=== PATIENT | male | born 1985 | race Caucasian/White ===

== ENCOUNTER 2017-08-19 17:10 | Emergency (ER) | payer MEDICAID ==
[~2017-08-19] VITALS: Ht 172.7 cm; Wt 93.9 kg
[2017-08-19 17:10] VITALS: BP_SYST 122
[2017-08-19] MEDS ORDERED: NACL 0.9% 1,000 ML IV ONE (19:30)
[2017-08-19] MEDS ORDERED: ONDANSETRON HCL 4 MG/2 ML VIAL IVP ONE (19:30)
[2017-08-19 20:29] LABS: BASOPHILS % (AUTO) 0.4 % (0.0-2.0); EOSINOPHILS # (AUTO) 0.1 K/uL (0.0-0.4); EOSINOPHILS % (AUTO) 0.7 % (0.0-4.0); HEMATOCRIT 39.8 % (36-54); HEMOGLOBIN 13.4 g/dL (14.0-18.0); LYMPHOCYTES # (AUTO) 1.7 K/uL (1.0-5.5); MEAN CORPUSCULAR HEMOGLOBIN 32 pg (27-31); MEAN CORPUSCULAR HGB CONC 34 % (32-36); MEAN CORPUSCULAR VOLUME 95 fL (79.0-98.0); MONOCYTES # (AUTO) 0.6 K/uL (0.0-1.0); MONOCYTES % (AUTO) 7.2 % (1.7-9.3); NEUTROPHILS # (AUTO) 6.4 K/uL (1.8-7.7); NEUTROPHILS % (AUTO) 72.7 % (40.0-70.0); PLATELET COUNT (AUTO) 123 K/uL (130-430); RED BLOOD CELL COUNT(AUTO) 4.18 MIL/uL (4.2-6.2); RED CELL DISTRIBUTION WIDTH 13.4 % (9.0-15.0); WHITE BLOOD COUNT (AUTO) 8.8 K/uL (4.8-10.8)
[2017-08-19 20:40] LABS: ANION GAP 11 (5-15); CALCIUM 7.9 mg/dL (8.4-11.0); CHLORIDE 100 mmol/L (98-107); CREATININE 0.61 mg/dL (0.55-1.30); GLUCOSE 96 mg/dL (70-99); SODIUM SERUM 138 mmol/L (136-145); UREA NITROGEN, BLOOD 5 mg/dL (8-21)
[2017-08-19 20:43] LABS: GFR AFRICAN AMERICAN 197 mL/min (>90)
[2017-08-19 20:44] LABS: POTASSIUM 2.9 mmol/L (3.5-5.1)
[2017-08-19 20:46] LABS: ACETAMINOPHEN < 1 ug/mL (1-30); ALANINE AMINOTRANSFERASE 130 U/L (12-78); ALBUMIN 3.2 g/dL (3.4-4.8); ASPARTATE AMINOTRANSFERASE 248 U/L (10-37); TOTAL BILIRUBIN 1.9 mg/dL (0.0-1.0)
[2017-08-19 20:47] LABS: ALCOHOL, BLOOD 232 mg/dL (<10)
[2017-08-19] MEDS ORDERED: POTASSIUM CHLORIDE 20 MEQ/PKT PACKET PO ONE (21:15)
[2017-08-19 21:16] VITALS: BP_SYST 132
== END 2017-08-19 21:16 | disposition home or self-care (01) ==
LOC: SED 17:10
DX: K52.9 Noninfective gastroenteritis and colitis, unspecified (principal); F10.129 Alcohol abuse with intoxication, unspecified; Z88.0 Allergy status to penicillin; Y90.8 Blood alcohol level of 240 mg/100 ml or more
CPT/HCPCS: 36415; 71045; 74021; 80053; 83690; 85025; 96361; 96374; 99285; G0480; G0481; G0482; J2405; J7030

== ENCOUNTER 2017-08-21 11:32 | Emergency (ER) | payer MEDICAID ==
[~2017-08-21] VITALS: Ht 172.7 cm; Wt 93.9 kg
[2017-08-21 11:39] VITALS: BP_SYST 133
[2017-08-21] MEDS ORDERED: NACL 0.9% 1,000 ML IV ONE (12:00)
[2017-08-21] MEDS ORDERED: FOLIC ACID 5 MG/ML VIAL IV ONE (12:00)
[2017-08-21] MEDS ORDERED: THIAMINE HCL 100 MG TABLET PO ONE (12:00)
[2017-08-21] MEDS ORDERED: ONDANSETRON HCL 4 MG/2 ML VIAL IVP ONE (12:00)
[2017-08-21] MEDS ORDERED: LORazepam 2 MG/ML VIAL (FOR ER USE) IVP ONE (12:00)
[2017-08-21 12:44] LABS: BASOPHILS # (AUTO) 0.1 K/uL (0.0-0.2); BASOPHILS % (AUTO) 0.7 % (0.0-2.0); EOSINOPHILS % (AUTO) 0.2 % (0.0-4.0); HEMATOCRIT 39.3 % (36-54); HEMOGLOBIN 13.1 g/dL (14.0-18.0); LYMPHOCYTES % (AUTO) 13.4 % (20.5-51.5); MEAN CORPUSCULAR HEMOGLOBIN 32 pg (27-31); MEAN CORPUSCULAR HGB CONC 34 % (32-36); MEAN CORPUSCULAR VOLUME 95 fL (79.0-98.0); MONOCYTES # (AUTO) 0.5 K/uL (0.0-1.0); MONOCYTES % (AUTO) 6.8 % (1.7-9.3); NEUTROPHILS % (AUTO) 78.9 % (40.0-70.0); PLATELET COUNT (AUTO) 110 K/uL (130-430); RED BLOOD CELL COUNT(AUTO) 4.11 MIL/uL (4.2-6.2); WHITE BLOOD COUNT (AUTO) 7.6 K/uL (4.8-10.8)
[2017-08-21 12:46] LABS: BILIRUBIN,URINE 2+ (NEGATIVE); BLOOD, URINE NEGATIVE (NEGATIVE); CLARITY/URINE CLEAR (CLEAR); COLOR,URINE YELLOW (YELLOW); GLUCOSE,URINE NEGATIVE (NEGATIVE); KETONES,URINE TRACE (NEGATIVE); LEUKOCYTE ESTERASE ,URINE NEGATIVE (NEGATIVE); NITRITE, URINE NEGATIVE (NEGATIVE); PH,URINE 6.5 (5.0-8.0); PROTEIN URINE 1+ (NEGATIVE)
[2017-08-21 12:49] LABS: CALCIUM 8.3 mg/dL (8.4-11.0); CREATININE 0.54 mg/dL (0.55-1.30); POTASSIUM 3.2 mmol/L (3.5-5.1)
[2017-08-21 12:53] LABS: ALBUMIN 3.3 g/dL (3.4-4.8); PHOSPHORUS 2.7 mg/dL (2.7-4.5)
[2017-08-21 13:02] LABS: BARBITURATE, URINE NEGATIVE (NEG <=200); BENZODIAZEPINE, URINE NEGATIVE (NEG <=150); CANNABINOID, URINE POSITIVE (NEG <=50); COCAINE, URINE NEGATIVE (NEG <=150); METHAMPHETAMINES SCREEN,URINE NEGATIVE (NEG <=500); OPIATE, URINE POSITIVE (NEG <=100); URINE AMPHETAMINE NEGATIVE (NEG <=500); URINE METHADONE NEGATIVE (NEG <=200)
[2017-08-21 13:03] LABS: PHENCYCLIDINE SCREEN,URINE NEGATIVE (NEG <=25); UR TRICYCLIC ANTIDEPRESSANTS NEGATIVE (NEG <=300); URINE OXYCODONE SCREEN NEGATIVE (NEG <=100); URINE PROPOXYPHENE SCREEN NEGATIVE (NEG <=300)
[2017-08-21 13:30] LABS: BACTERIA,URINE FEW /HPF (None Seen); MUCUS,URINE 2+ /LPF (None Seen); RBC,URINE 0-3 /HPF (0-3); WBC,URINE 0-3 /HPF (0-3)
[2017-08-21] MEDS ORDERED: MAGNESIUM SULFATE 1 GM in NS 100 ML IV ONE (13:30)
[2017-08-21] MEDS ORDERED: POTASSIUM CHLORIDE 10 MEQ TAB.PRT.SR PO ONE (13:30)
[2017-08-21] MEDS ORDERED: MAGNESIUM SULFATE 1 GM/2 ML VIAL ONE (13:31)
[2017-08-21 14:48] VITALS: BP_SYST 135
== END 2017-08-21 14:48 | disposition home or self-care (01) ==
LOC: SED 11:32
DX: K52.9 Noninfective gastroenteritis and colitis, unspecified (principal); F10.239 Alcohol dependence with withdrawal, unspecified; I10 Essential (primary) hypertension; Z88.0 Allergy status to penicillin; Y90.4 Blood alcohol level of 80-99 mg/100 ml
CPT/HCPCS: 36415; 80053; 80307; 81000; 83690; 83735; 84100; 85025; 96361; 96365; 96375; 99284; G0482; J2060; J2405; J3475; J3490

== ENCOUNTER 2017-09-04 19:49 | Emergency (ER) | payer MEDICAID ==
[~2017-09-04] VITALS: Ht 172.7 cm; Wt 93.9 kg
[2017-09-04 20:20] VITALS: BP_SYST 127
== END 2017-09-04 21:25 | disposition left against medical advice (07) ==
LOC: SED 19:49
DX: H92.09 Otalgia, unspecified ear (principal); Z53.21 Procedure and treatment not carried out due to patient leaving prior to being seen by health care provider

== ENCOUNTER 2017-09-05 08:30 | Inpatient (IN) | payer MEDICAID ==
[~2017-09-05] VITALS: Ht 170.2 cm; Wt 93.9 kg
[2017-09-05 08:30] VITALS: BP_SYST 139
[2017-09-05] MEDS ORDERED: FOLIC ACID 1 MG, THIAMINE HCL 100 MG, MAGNESIUM SULFATE 1 GM, MVI 10 ML in NACL 0.9% 1,... IV ONE (09:00)
[2017-09-05 09:29] LABS: BASOPHILS # (AUTO) 0.1 K/uL (0.0-0.2); BASOPHILS % (AUTO) 1.1 % (0.0-2.0); EOSINOPHILS # (AUTO) 0.1 K/uL (0.0-0.4); EOSINOPHILS % (AUTO) 1.6 % (0.0-4.0); HEMOGLOBIN 12.5 g/dL (14.0-18.0); LYMPHOCYTES # (AUTO) 1.2 K/uL (1.0-5.5); LYMPHOCYTES % (AUTO) 15.9 % (20.5-51.5); MEAN CORPUSCULAR HEMOGLOBIN 31 pg (27-31); MEAN CORPUSCULAR HGB CONC 33 % (32-36); MEAN CORPUSCULAR VOLUME 96 fL (79.0-98.0); MONOCYTES # (AUTO) 0.6 K/uL (0.0-1.0); MONOCYTES % (AUTO) 7.2 % (1.7-9.3); NEUTROPHILS # (AUTO) 5.8 K/uL (1.8-7.7); NEUTROPHILS % (AUTO) 74.2 % (40.0-70.0); PLATELET COUNT (AUTO) 164 K/uL (130-430); RED BLOOD CELL COUNT(AUTO) 3.98 MIL/uL (4.2-6.2); WHITE BLOOD COUNT (AUTO) 7.8 K/uL (4.8-10.8)
[2017-09-05 09:41] LABS: CREATININE 0.56 mg/dL (0.55-1.30); POTASSIUM 3.1 mmol/L (3.5-5.1)
[2017-09-05 09:45] LABS: INR 1.7 (0.80-1.20); PROTHROMBIN TIME 17.8 SECS (9.5-12.5)
[2017-09-05 09:46] LABS: ALBUMIN 3.1 g/dL (3.4-4.8); TOTAL BILIRUBIN 1.8 mg/dL (0.0-1.0)
[2017-09-05 10:00] LABS: BILIRUBIN,URINE NEGATIVE (NEGATIVE); BLOOD, URINE NEGATIVE (NEGATIVE); CLARITY/URINE CLEAR (CLEAR); COLOR,URINE YELLOW (YELLOW); GLUCOSE,URINE NEGATIVE (NEGATIVE); KETONES,URINE NEGATIVE (NEGATIVE); LEUKOCYTE ESTERASE ,URINE NEGATIVE (NEGATIVE); NITRITE, URINE NEGATIVE (NEGATIVE); PROTEIN URINE NEGATIVE (NEGATIVE); UROBILINOGEN,URINE 0.2 (0.2-1.0)
[2017-09-05] MEDS ORDERED: POTASSIUM CHLORIDE 20 MEQ TAB.PRT.SR PO ONE (10:15)
[2017-09-05 10:31] LABS: BARBITURATE, URINE NEGATIVE (NEG <=200); BENZODIAZEPINE, URINE POSITIVE (NEG <=150); CANNABINOID, URINE POSITIVE (NEG <=50); COCAINE, URINE NEGATIVE (NEG <=150); METHAMPHETAMINES SCREEN,URINE NEGATIVE (NEG <=500); OPIATE, URINE POSITIVE (NEG <=100); PHENCYCLIDINE SCREEN,URINE NEGATIVE (NEG <=25); UR TRICYCLIC ANTIDEPRESSANTS NEGATIVE (NEG <=300); URINE AMPHETAMINE NEGATIVE (NEG <=500); URINE METHADONE NEGATIVE (NEG <=200); URINE OXYCODONE SCREEN NEGATIVE (NEG <=100); URINE PROPOXYPHENE SCREEN NEGATIVE (NEG <=300)
[2017-09-05 10:45] VITALS: BP_SYST 120
[2017-09-05] MEDS ORDERED: POTASSIUM CHLORIDE 40 MEQ, LIDOCAINE JECT 2% PF 100 MG 50 MG in NS 250 ML IV ONE (11:30)
[2017-09-05 12:00] VITALS: BP_SYST 127
[2017-09-05 16:00] VITALS: BP_SYST 123
[2017-09-05] MEDS: FOLIC ACID 1 MG, THIAMINE HCL 100 MG, MAGNESIUM SULFATE 1 GM, MVI 10 ML in NACL 0.9% 1,... IV SCH (16:41)
[2017-09-05] MEDS ORDERED: INSULIN REGULAR, HUMAN 100 UNITS/ML, 10 ML VIAL (novoLIN R) SUBCUT PRN (18:30)
[2017-09-05] MEDS ORDERED: DEXTROSE 50% JECT 50 ML DISP.SYRIN IVP PRN (18:30)
[2017-09-05] MEDS ORDERED: PHYTONADIONE 5 MG TABLET PO ONE (18:30)
[2017-09-05] MEDS ORDERED: THIAMINE HCL 100 MG TABLET PO ONE (18:45)
[2017-09-05] MEDS ORDERED: FOLIC ACID 1 MG TABLET PO ONE (18:45)
[2017-09-05 20:00] VITALS: BP_SYST 126
[2017-09-05] MEDS ORDERED: AMOXICILLIN/CLAVULANATE POTASSIUM 875 MG TABLET PO SCH (21:00)
[2017-09-05] MEDS: POTASSIUM CHLORIDE 20 MEQ TAB.PRT.SR PO SCH (21:22)
[2017-09-05] MEDS: LORazepam 2 MG/ML VIAL IVP PRN (21:39)
[2017-09-06] VITALS: BP_SYST 124
[2017-09-06 07:25] VITALS: BP_SYST 124
[2017-09-06] MEDS: POTASSIUM CHLORIDE 20 MEQ TAB.PRT.SR PO SCH ×2 (08:35→20:24)
[2017-09-06] MEDS: FOLIC ACID 1 MG TABLET PO SCH (08:35)
[2017-09-06] MEDS: THIAMINE HCL 100 MG TABLET PO SCH (08:36)
[2017-09-06 08:56] LABS: BASOPHILS % (AUTO) 0.7 % (0.0-2.0); EOSINOPHILS # (AUTO) 0.1 K/uL (0.0-0.4); EOSINOPHILS % (AUTO) 0.8 % (0.0-4.0); HEMATOCRIT 38.4 % (36-54); HEMOGLOBIN 12.8 g/dL (14.0-18.0); LYMPHOCYTES % (AUTO) 14.6 % (20.5-51.5); MEAN CORPUSCULAR HEMOGLOBIN 32 pg (27-31); MEAN CORPUSCULAR HGB CONC 33 % (32-36); MEAN CORPUSCULAR VOLUME 96 fL (79.0-98.0); MONOCYTES # (AUTO) 0.5 K/uL (0.0-1.0); MONOCYTES % (AUTO) 6.7 % (1.7-9.3); NEUTROPHILS # (AUTO) 5.4 K/uL (1.8-7.7); NEUTROPHILS % (AUTO) 77.2 % (40.0-70.0); PLATELET COUNT (AUTO) 126 K/uL (130-430); RED BLOOD CELL COUNT(AUTO) 4.01 MIL/uL (4.2-6.2); RED CELL DISTRIBUTION WIDTH 13.7 % (9.0-15.0)
[2017-09-06 09:06] LABS: ALBUMIN 2.8 g/dL (3.4-4.8); CALCIUM 8.3 mg/dL (8.4-11.0); CREATININE 0.48 mg/dL (0.55-1.30); POTASSIUM 4.1 mmol/L (3.5-5.1); TOTAL BILIRUBIN 3.1 mg/dL (0.0-1.0)
[2017-09-06] MEDS: LORazepam 2 MG/ML VIAL IVP PRN ×2 (11:15→20:07)
[2017-09-06 16:15] VITALS: BP_SYST 122
[2017-09-06] MEDS: FOLIC ACID 1 MG, THIAMINE HCL 100 MG, MAGNESIUM SULFATE 1 GM, MVI 10 ML in NACL 0.9% 1,... IV SCH (16:47)
[2017-09-07 00:17] VITALS: BP_SYST 113
[2017-09-07] MEDS: LORazepam 2 MG/ML VIAL IVP PRN ×2 (06:18→11:14)
[2017-09-07] MEDS ORDERED: DIATR MEGLU/DIATRIZ SOD 30 ML SOLUTION PO ONE (06:56)
[2017-09-07 07:09] LABS: BASOPHILS # (AUTO) 0.1 K/uL (0.0-0.2); BASOPHILS % (AUTO) 0.7 % (0.0-2.0); EOSINOPHILS # (AUTO) 0.1 K/uL (0.0-0.4); EOSINOPHILS % (AUTO) 1.5 % (0.0-4.0); HEMATOCRIT 39.4 % (36-54); HEMOGLOBIN 13.3 g/dL (14.0-18.0); LYMPHOCYTES # (AUTO) 1.2 K/uL (1.0-5.5); LYMPHOCYTES % (AUTO) 16.3 % (20.5-51.5); MEAN CORPUSCULAR HEMOGLOBIN 33 pg (27-31); MEAN CORPUSCULAR HGB CONC 34 % (32-36); MEAN CORPUSCULAR VOLUME 96 fL (79.0-98.0); MONOCYTES # (AUTO) 0.5 K/uL (0.0-1.0); MONOCYTES % (AUTO) 6.2 % (1.7-9.3); NEUTROPHILS # (AUTO) 5.8 K/uL (1.8-7.7); NEUTROPHILS % (AUTO) 75.3 % (40.0-70.0); PLATELET COUNT (AUTO) 132 K/uL (130-430); RED BLOOD CELL COUNT(AUTO) 4.08 MIL/uL (4.2-6.2); RED CELL DISTRIBUTION WIDTH 13.9 % (9.0-15.0); WHITE BLOOD COUNT (AUTO) 7.7 K/uL (4.8-10.8)
[2017-09-07 07:18] LABS: CALCIUM 8.4 mg/dL (8.4-11.0); CREATININE 0.54 mg/dL (0.55-1.30); POTASSIUM 4.2 mmol/L (3.5-5.1)
[2017-09-07 08:00] VITALS: BP_SYST 119
[2017-09-07] MEDS ORDERED: IOHEXOL 100 ML IV ONE (09:51)
[2017-09-07] MEDS: FOLIC ACID 1 MG TABLET PO SCH (10:45)
[2017-09-07] MEDS: POTASSIUM CHLORIDE 20 MEQ TAB.PRT.SR PO SCH (10:46)
[2017-09-07] MEDS: THIAMINE HCL 100 MG TABLET PO SCH (10:46)
[2017-09-07 15:18] VITALS: BP_SYST 129
== END 2017-09-07 15:55 | disposition home or self-care (01) | DRG 115 ==
LOC: SED 08:30 → STU 10:03 → SMU 09-07 12:29
PROVIDERS: ADMIT Internal Medicine; ATTEND Internal Medicine
DX: S09.21XA Traumatic rupture of right ear drum, initial encounter (principal); S09.8XXA Other specified injuries of head, initial encounter; K70.10 Alcoholic hepatitis without ascites; F10.230 Alcohol dependence with withdrawal, uncomplicated; F10.220 Alcohol dependence with intoxication, uncomplicated; W18.39XA Other fall on same level, initial encounter; I10 Essential (primary) hypertension; H66.91 Otitis media, unspecified, right ear; Y93.89 Activity, other specified; Y92.89 Other specified places as the place of occurrence of the external cause; Y99.8 Other external cause status; Z88.0 Allergy status to penicillin
CPT/HCPCS: 36415; 70450-TC; 71045; 80048; 80053; 80307; 81003; 82962; 83036; 84484; 85025; 85610-TC; 85730-TC; 93005; G0482; J1815; J2060; J3411; J3475; J3480; J3490; J7030; J7050; Q9964; Q9967

== ENCOUNTER 2017-09-22 22:50 | Emergency (ER) | payer MEDICAID ==
[~2017-09-22] VITALS: Ht 172.7 cm; Wt 93.9 kg
[2017-09-22 22:55] VITALS: BP_SYST 123
[2017-09-22] MEDS ORDERED: DIPHENHYDRAMINE HCL 50 MG CAPSULE PO ONE (23:15)
[2017-09-22 23:25] VITALS: BP_SYST 110
== END 2017-09-22 23:25 | disposition home or self-care (01) ==
LOC: SED 22:50
DX: T78.40XA Allergy, unspecified, initial encounter (principal); L53.8 Other specified erythematous conditions; I10 Essential (primary) hypertension; Z88.0 Allergy status to penicillin; X58.XXXA Exposure to other specified factors, initial encounter
CPT/HCPCS: 99283; Q0163

== ENCOUNTER 2017-12-15 11:17 | Emergency (ER) | payer MEDICAID ==
[~2017-12-15] VITALS: Ht 172.7 cm; Wt 88.5 kg
[2017-12-15 11:21] VITALS: BP_SYST 137
[2017-12-15] MEDS ORDERED: ONDANSETRON 4 MG ODT TAB PO ONE (11:45)
[2017-12-15 13:40] VITALS: BP_SYST 138
== END 2017-12-15 13:40 | disposition home or self-care (01) ==
LOC: SED 11:17
DX: R10.13 Epigastric pain (principal); R11.2 Nausea with vomiting, unspecified; R19.7 Diarrhea, unspecified; I10 Essential (primary) hypertension; Z88.0 Allergy status to penicillin
CPT/HCPCS: 99283; Q0162

== ENCOUNTER 2018-01-20 12:38 | Emergency (ER) | payer MEDICAID ==
[~2018-01-20] VITALS: Ht 172.7 cm; Wt 91.6 kg
[2018-01-20 12:55] VITALS: BP_SYST 135
[2018-01-20 15:40] LABS: BASOPHILS % (AUTO) 0.8 % (0.0-2.0); EOSINOPHILS % (AUTO) 0.2 % (0.0-4.0); HEMATOCRIT 38.6 % (36-54); HEMOGLOBIN 12.9 g/dL (14.0-18.0); LYMPHOCYTES # (AUTO) 0.8 K/uL (1.0-5.5); LYMPHOCYTES % (AUTO) 15.3 % (20.5-51.5); MEAN CORPUSCULAR HEMOGLOBIN 31 pg (27-31); MEAN CORPUSCULAR HGB CONC 33 % (32-36); MEAN CORPUSCULAR VOLUME 94 fL (79.0-98.0); MONOCYTES # (AUTO) 0.3 K/uL (0.0-1.0); MONOCYTES % (AUTO) 6.1 % (1.7-9.3); NEUTROPHILS # (AUTO) 4.2 K/uL (1.8-7.7); NEUTROPHILS % (AUTO) 77.6 % (40.0-70.0); RED BLOOD CELL COUNT(AUTO) 4.11 MIL/uL (4.2-6.2); RED CELL DISTRIBUTION WIDTH 12.8 % (9.0-15.0); WHITE BLOOD COUNT (AUTO) 5.3 K/uL (4.8-10.8)
[2018-01-20 15:55] LABS: CALCIUM 8.4 mg/dL (8.4-11.0); CREATININE 0.65 mg/dL (0.55-1.30); POTASSIUM 3.8 mmol/L (3.5-5.1)
[2018-01-20 16:10] LABS: ALBUMIN 3.8 g/dL (3.4-4.8); THYROID STIMULATING HORMONE 0.84 uIu/mL (0.34-4.82); TOTAL BILIRUBIN 1.6 mg/dL (0.0-1.0)
--- NOTE | 2018-01-20 16:19 | NUR ---
Patient to ER shafer [address] [facility] for evaluation. Side rails up. Report given to Mary PORTER.
[2018-01-20 16:23] LABS: PLATELET COUNT (AUTO) 84 K/uL (130-430)
--- NOTE | 2018-01-20 16:28 | NUR ---
PT STATES THAT HE IS UNABLE TO SLEEP DUE TO BEING NERVOUS, PT IS VISABLLY ANXIOUS AND SHAKING. SEEN AND EVALUATED BY KAREN WILDE.
--- NOTE | 2018-01-20 16:35 | NUR ---
PT DENIES ANY ENERGY DRINK USE OR CAFFEINE INTACT. PT DENIES ANY DRUG ABUSE.
--- NOTE | 2018-01-20 17:01 | NUR ---
Pt laying in bed, mild shakiness noted, VS WNL, respirations even and unlabored, will cont to monitor.
[2018-01-20 17:09] LABS: BILIRUBIN,URINE 1+ (NEGATIVE); BLOOD, URINE 3+ (NEGATIVE); CLARITY/URINE CLEAR (CLEAR); COLOR,URINE AMBER (YELLOW); GLUCOSE,URINE NEGATIVE (NEGATIVE); KETONES,URINE TRACE (NEGATIVE); LEUKOCYTE ESTERASE ,URINE NEGATIVE (NEGATIVE); NITRITE, URINE NEGATIVE (NEGATIVE); PH,URINE 6.5 (5.0-8.0); PROTEIN URINE 1+ (NEGATIVE)
[2018-01-20 17:16] LABS: UROBILINOGEN,URINE >=8 (0.2-1.0)
[2018-01-20 17:20] LABS: BARBITURATE, URINE NEGATIVE (NEG <=200); BENZODIAZEPINE, URINE POSITIVE (NEG <=150); CANNABINOID, URINE POSITIVE (NEG <=50); COCAINE, URINE NEGATIVE (NEG <=150); METHAMPHETAMINES SCREEN,URINE NEGATIVE (NEG <=500); OPIATE, URINE NEGATIVE (NEG <=100); PHENCYCLIDINE SCREEN,URINE NEGATIVE (NEG <=25); UR TRICYCLIC ANTIDEPRESSANTS NEGATIVE (NEG <=300); URINE AMPHETAMINE NEGATIVE (NEG <=500); URINE METHADONE NEGATIVE (NEG <=200); URINE OXYCODONE SCREEN NEGATIVE (NEG <=100); URINE PROPOXYPHENE SCREEN NEGATIVE (NEG <=300)
[2018-01-20 17:23] LABS: BACTERIA,URINE None Seen /HPF (None Seen); MUCUS,URINE 4+ /LPF (None Seen); RBC,URINE 20-50 /HPF (0-3); WBC,URINE NONE SEEN /HPF (0-3)
[2018-01-20] MEDS ORDERED: ALPRAZolam 0.25 MG TABLET PO ONE (17:30)
--- NOTE | 2018-01-20 17:47 | NUR ---
Patient given written and verbal discharge instructions and verbalizes understanding. ER MD discussed with patient the results and treatment provided. Patient in stable condition. ID arm band removed. Rx of Ativan given. Patient educated on pain management and to follow up with PMD. Pain Scale 0/10. Opportunity for questions provided and answered. Medication side effect fact sheet provided.
== END 2018-01-20 17:50 | disposition home or self-care (01) ==
LOC: SED 12:39
DX: F41.9 Anxiety disorder, unspecified (principal); I10 Essential (primary) hypertension; Z88.0 Allergy status to penicillin
CPT/HCPCS: 36415; 80053; 80307; 81000-TC; 83690-TC; 84443-TC; 85025; 93005; 99285

== ENCOUNTER 2018-01-28 14:40 | Emergency (ER) | payer MEDICAID ==
[~2018-01-28] VITALS: Ht 172.7 cm; Wt 90.7 kg
[2018-01-28 14:48] VITALS: BP_SYST 144
[2018-01-28] MEDS ORDERED: PARO-63 PO (15:01)
[2018-01-28] MEDS ORDERED: TRAZ-123 PO (15:01)
[2018-01-28] MEDS ORDERED: LORazepam 1 MG TABLET PO ONE (15:15)
[2018-01-28] MEDS ORDERED: ONDANSETRON 4 MG ODT TAB PO ONE (15:15)
[2018-01-28] MEDS ORDERED: KETOROLAC TROMETHAMINE 60 MG/2 ML VIAL IM ONE (17:00)
[2018-01-28 17:44] VITALS: BP_SYST 143
== END 2018-01-28 17:44 | disposition home or self-care (01) ==
LOC: SED 14:40
DX: F41.9 Anxiety disorder, unspecified (principal); R11.10 Vomiting, unspecified; T43.215A Adverse effect of selective serotonin and norepinephrine reuptake inhibitors, initial encounter; T43.225A Adverse effect of selective serotonin reuptake inhibitors, initial encounter; G47.00 Insomnia, unspecified; I10 Essential (primary) hypertension; F12.10 Cannabis abuse, uncomplicated; Z88.0 Allergy status to penicillin; Y92.89 Other specified places as the place of occurrence of the external cause
CPT/HCPCS: 96372; 99283; J1885; Q0162

== ENCOUNTER 2018-02-02 12:15 | Inpatient (IN) | payer MEDICAID ==
[2018-02-02] VITALS (8 sets, daily range): BP systolic 65–120
[~2018-02-02] VITALS: Ht 172.7 cm; Wt 90.7 kg
[~2018-02-02 12:15] MED LIST: PARO-63 PO; TRAZ-123 PO
--- NOTE | 2018-02-02 12:20 | NUR ---
Placed in room 3 . Placed on director of cardiac cath lab, blood pressure machine and pulse oximeter. To gown for exam. Side rails up.
--- NOTE | 2018-02-02 12:25 | NUR ---
ER at bedside examining patient.
[2018-02-02] MEDS ORDERED: NACL 0.9% 1,000 ML IV ONE ×2 (12:27→18:30)
[2018-02-02] MEDS ORDERED: ONDANSETRON HCL 4 MG/2 ML VIAL IVP ONE (12:30)
[2018-02-02] MEDS ORDERED: KETOROLAC TROMETHAMINE 30 MG VIAL IVP ONE (12:30)
[2018-02-02 13:09] LABS: BASOPHILS % (AUTO) 0.3 % (0.0-2.0); EOSINOPHILS % (AUTO) 0.1 % (0.0-4.0); HEMATOCRIT 25.1 % (36-54); HEMOGLOBIN 8.2 g/dL (14.0-18.0); LYMPHOCYTES # (AUTO) 0.8 K/uL (1.0-5.5); LYMPHOCYTES % (AUTO) 8.9 % (20.5-51.5); MEAN CORPUSCULAR HEMOGLOBIN 31 pg (27-31); MEAN CORPUSCULAR HGB CONC 33 % (32-36); MEAN CORPUSCULAR VOLUME 94 fL (79.0-98.0); MONOCYTES # (AUTO) 0.4 K/uL (0.0-1.0); MONOCYTES % (AUTO) 4.4 % (1.7-9.3); NEUTROPHILS # (AUTO) 7.4 K/uL (1.8-7.7); NEUTROPHILS % (AUTO) 86.3 % (40.0-70.0); PLATELET COUNT (AUTO) 139 K/uL (130-430); RED BLOOD CELL COUNT(AUTO) 2.66 MIL/uL (4.2-6.2); RED CELL DISTRIBUTION WIDTH 13.3 % (9.0-15.0); WHITE BLOOD COUNT (AUTO) 8.6 K/uL (4.8-10.8)
--- NOTE | 2018-02-02 13:20 | NUR ---
# 20 gauge angiocath placed to LAC. Use of asceptic technique. Opsite placed over site. Blood return noted. Flushed with 10 cc of normal saline. No evidence of infiltration noted. Patient tolerated well.
--- NOTE | 2018-02-02 13:22 | NUR ---
Pt presents to ER c/o middle abdominal pain 6/10 on pain scale, vomiting dark red blood. Pt reports having drank alcohol yesterday before symptoms began. Pt reports vomiting "buckets full" of blood. Pt denies chest pain or sob. Pt wheeled into ER, AOX4, speaking full sentences, respirations even and unlabored.
--- NOTE | 2018-02-02 13:23 | NUR ---
Pt medicated as ordered by Dr. Denny; pt tolerated well; will continue to monitor.
--- NOTE | 2018-02-02 13:25 | NUR ---
Sharri talley in [facility] - 02/02/18 at 1404 by [email or web address] WILLA Murcia at bedside examining patient.
[2018-02-02] MEDS ORDERED: PANTOPRAZOLE SODIUM 40 MG/VIAL (PROTONIX) IVP ONE (13:30)
--- NOTE | 2018-02-02 13:48 | NUR ---
# 20 gauge angiocath placed to R HAND. Use of asceptic technique. Opsite placed over site. Blood return noted. Flushed with 10 cc of normal saline. No evidence of infiltration noted. Patient tolerated well.
--- NOTE | 2018-02-02 13:50 | NUR ---
Dr. Denny at bedside speaking with pt discussing lab results and plan to admit pt.
[2018-02-02 13:52] LABS: CALCIUM 7.5 mg/dL (8.4-11.0); CREATININE 0.88 mg/dL (0.55-1.30); POTASSIUM 3.8 mmol/L (3.5-5.1)
[2018-02-02 13:57] LABS: ALBUMIN 2.5 g/dL (3.4-4.8); TOTAL BILIRUBIN 1.1 mg/dL (0.0-1.0)
--- NOTE | 2018-02-02 14:15 | NUR ---
Pt denies taking any medication at the moment. The two listed home medications (Trazodone & Paxil) are medications he no longer takes, as stated by pt. Pt reports that they are new medications he was recently prescribed and the one time he took it it made him sick therefore he decided not to continue with it.
[2018-02-02] MEDS ORDERED: D5/0.45 NS 1,000 ML IV ONE (14:45)
[2018-02-02] MEDS ORDERED: ONDANSETRON HCL 4 MG/2 ML VIAL IVP PRN ×2 (14:45→17:00)
--- NOTE | 2018-02-02 15:00 | NUR ---
Patient will be admitted to care of Dr. Saenz. Admitted to tele unit. Will go to room 117a. Belongings list completed. Summary report printed. Report will be given at bedside. Transfer to tele via ACLS protocol. Licensed nurse present. IV present no signs or symptoms of infiltration.
--- NOTE | 2018-02-02 15:20 | NUR ---
CONSULTATION CALLED REASON FOR CONSULTATION:UPSET GI WAS CONSULT CALLED?Y PERSON WHO WAS NOTIFIED:VITALIY CONSULTING PHYSICIAN:FRANCISCO MUNSON (SHANIA BECKETT THIRD LOADER) DIET COUNSELOR SPECIALTY:GI DIET COUNSELOR PHONE NUMBER:[phone] ORDERING PHYSICIAN:GERALD NICHOLSON
--- NOTE | 2018-02-02 15:49 | NUR ---
ADMISSION NOTE Received patient from ER via gurney. Patient admitted with diagnosis of gi upset.Put patient on heart monitor. Patient is awake, alert, oriented X 4. Patient oriented to hospital room, call light, toileting, pain management and safety-teach back done. Patient informed that will be his nurse and that their room number is 117-B. Personal belongings checked and Belongings List documented. Call light within reach. Addendum: 02/02/18 at 1920 by Andra Maynard RN added notes: Patient informed that Ap will be his nurse.
--- NOTE | 2018-02-02 16:18 | NUR ---
Report: Report given to Ap babcock rn,patient in stable condition.
[2018-02-02] MEDS ORDERED: MORPHINE 2 MG/ML INJ. SYRINGE IVP PRN ×2 (17:00)
[2018-02-02] MEDS ORDERED: MAGNESIUM SULFATE 50 ML IV PRN (17:00)
[2018-02-02] MEDS ORDERED: MUPIROCIN 2% TOPICAL OINTMENT 22 GM NS PRN (17:00)
[2018-02-02] MEDS ORDERED: LORazepam 2 MG/ML VIAL IVP PRN (17:00)
[2018-02-02] MEDS ORDERED: DOCUSATE SODIUM 100 MG CAPSULE PO PRN (17:00)
[2018-02-02] MEDS ORDERED: ZOLPIDEM TARTRATE 5 MG TABLET PO PRN (17:00)
[2018-02-02] MEDS ORDERED: ACETAMINOPHEN 325 MG TABLET PO PRN (17:00)
[2018-02-02] MEDS ORDERED: POTASSIUM CHLORIDE 20 MEQ TAB.PRT.SR PO PRN (17:00)
[2018-02-02] MEDS ORDERED: PANTOPRAZOLE SODIUM 40 MG TAB PO ONE (18:00)
--- NOTE | 2018-02-02 18:25 | NUR ---
Patient c/o nausea and dizziness. BP in the 80s systolic; Dr. Saenz is informed and orders are given.
--- NOTE | 2018-02-02 18:25 | NUR ---
Dr. Saenz states the patient is to be transferred to ICU if BP remains <90mmHg after bolus.
--- NOTE | 2018-02-02 18:35 | NUR ---
rapid response called as patient becomes more restless and BP at 90s while the bolus is running.
[2018-02-02 19:10] LABS: HEMATOCRIT 17.6 % (36-54); HEMOGLOBIN 6.1 g/dL (14.0-18.0)
--- NOTE | 2018-02-02 19:11 | NUR ---
PAGE CALLED FOR DR. LONGO. SPOKE TO DR. LONGO, DIALED [phone].
[2018-02-02] MEDS ORDERED: COMMUNICATION ORDER XX ONE (19:30)
--- NOTE | 2018-02-02 19:40 | NUR ---
Patient transferred to ICU. Report given to Murphy ICU nurse.
[2018-02-02] MEDS ORDERED: NOREPINEPHRINE 4 MG/4 ML VIAL IV ONE ×2 (19:57→23:17)
--- NOTE | 2018-02-02 20:00 | NUR ---
TRANSFER OF CARE Received report from [facility] GERMAN De Souza. Pt in bed awake and confused. Blood in the stool noted. Sinus tachycardia on the monitor with HR is elevated to 150's, hypotensive with systolic on 60's. O2 saturation at 100% on 2L nasal cannula. Allergy to penicillin noted. Levophed started at 8mcg/min and started IV fluid. Will titrate Levophed until blood pressure stabilize. IV on RH 20G, LAC 20G patent and flushing well. Hgb at 6.1 Hct 17.6. Safety precaution observed, will continue to monitor Pt.
--- NOTE | 2018-02-02 20:10 | NUR ---
BLOOD TRANSFUSION Blood transfusion started and will monitor for reaction. Will stay at bedside for 1st 15 min and continue to monitor Pt.
--- NOTE | 2018-02-02 20:47 | NUR ---
CONSULT Dr Villalobos consult called for stat consult, exchange: left message with Angelia.
--- NOTE | 2018-02-02 20:55 | NUR ---
CONSULT GI consult for Dr Matias stat call. Left message with exchange.
[2018-02-02] MEDS ORDERED: PANTOPRAZOLE SODIUM 40 MG/VIAL (PROTONIX) IVP SCH (21:00)
--- NOTE | 2018-02-02 21:08 | NUR ---
CONSULT Second call for stat Pulmonary consult. Left message with exchange.
--- NOTE | 2018-02-02 21:10 | NUR ---
CONSULT Second call for GI service, left message with exchange.
--- NOTE | 2018-02-02 21:10 | NUR ---
Spoke with Dr. Villalobos gave report about the Pt, no orders received and will continue to monitor Pt. Will page Dr. Saenz for Pt's high heart rate and low blood pressure.
--- NOTE | 2018-02-02 21:40 | NUR ---
MD Dr. Villalobos at bedside for medical evaluation. Orders received and will carry out orders.
[2018-02-02] MEDS ORDERED: NACL 0.9% 500 ML IV SCH (22:00)
[2018-02-02 22:11] LABS: INR 1.9 (0.80-1.20); PROTHROMBIN TIME 19.5 SECS (9.5-12.5)
--- NOTE | 2018-02-02 22:15 | NUR ---
BLOOD TRANSFUSION Blood transfusion started and will monitor for reaction. Will stay at bedside for 1st 15 min and continue to monitor Pt.
[2018-02-02] MEDS ORDERED: PANTOPRAZOLE SODIUM 40 MG/VIAL (PROTONIX) ONE (22:34)
[2018-02-02] MEDS ORDERED: OCTREOTIDE ACETATE 50 MCG/ML AMP IV SCH (23:30)
[2018-02-02] MEDS ORDERED: NACL 0.9% 1,000 ML IV SCH (23:30)
[2018-02-03] VITALS: BP_SYST 108
[2018-02-03] MEDS ORDERED: OCTREOTIDE ACETATE 200 MCG/1 ML 5ML VIAL ONE (00:12)
[2018-02-03 01:00] VITALS: BP_SYST 144
[2018-02-03] MEDS ORDERED: OCTREOTIDE ACETATE 1,250 MCG in NS 250 ML IV SCH ×3 (01:00)
--- NOTE | 2018-02-03 01:16 | NUR ---
CODE LUZ Pt unresponsive, no pulse noted. Malu gerber initiated and started CPR, brought crash cart in. See code blue sheet for more details.
--- NOTE | 2018-02-03 01:57 | NUR ---
PAGING DR. BAYRON Guzmaning Dr. Villalobos tor report patient's current condition. Spoke with Karen from exchange. Will wait for MD to call back.
[2018-02-03 02:00] VITALS: BP_SYST 80
--- NOTE | 2018-02-03 02:05 | NUR ---
PAGING DR. DONTA Saenz was paged to report patient's condition with code blue. spoke with charge nurse, GERMAN Muniz.
[2018-02-03] MEDS ORDERED: PHENYLEPHRINE HCL 30 MG in NS 247 ML IV PRN (02:15)
[2018-02-03] MEDS ORDERED: PHENYLEPHRINE HCL 10 MG/ML VIAL (NEOSYNEPHRINE) ONE ×7 (02:22→10:49)
[2018-02-03] MEDS ORDERED: NOREPINEPHRINE 4 MG/4 ML VIAL IV ONE ×4 (02:55→11:20)
[2018-02-03 03:00] VITALS: BP_SYST 48
--- NOTE | 2018-02-03 03:15 | NUR ---
DR BAYRON Villalobos notified of Post intubation ABG. Orders received. 1. change AC vent setting to 22 2. Give 2 amps of sodium bicarb
[2018-02-03 03:16] LABS: CREATININE 2.48 mg/dL (0.55-1.30)
[2018-02-03 03:17] LABS: MEAN CORPUSCULAR HEMOGLOBIN 32 pg (27-31); MEAN CORPUSCULAR HGB CONC 33 % (32-36); MEAN CORPUSCULAR VOLUME 98 fL (79.0-98.0); PLATELET COUNT (AUTO) 69 K/uL (130-430); RED BLOOD CELL COUNT(AUTO) 1.36 MIL/uL (4.2-6.2); RED CELL DISTRIBUTION WIDTH 15.2 % (9.0-15.0)
[2018-02-03 03:20] LABS: HEMATOCRIT 13.4 % (36-54); HEMOGLOBIN 4.4 g/dL (14.0-18.0)
[2018-02-03 03:22] LABS: POTASSIUM 6.1 mmol/L (3.5-5.1)
[2018-02-03 03:23] LABS: CALCIUM 6.4 mg/dL (8.4-11.0)
[2018-02-03] MEDS ORDERED: SODIUM BICARBONATE 8.4% JECT 50 MEQ/50 ML SYRINGE ONE ×2 (03:30→09:51)
[2018-02-03 03:33] VITALS: BP_SYST 84
--- NOTE | 2018-02-03 03:40 | NUR ---
DR BAYRON Villalobos notified of post resuscitation CBC results. Orders received. 1. 4 units of PRBC to be given. 2. 2 units of FFP to be given. 3. blood cultures X2
[2018-02-03] MEDS ORDERED: SODIUM BICARBONATE 8.4% JECT 50 MEQ/50 ML SYRINGE IVP SCH (03:45)
--- NOTE | 2018-02-03 03:50 | NUR ---
DR DONTA Saenz notified of elevated WBC. Orders received. 1. Vancomycin per Pharmacy 2. Lactic Acid X2
[2018-02-03 04:00] VITALS: BP_SYST 59
[2018-02-03 04:18] LABS: BAND % (MANUAL) 12 % (0-6); BASOPHILS % (MANUAL) 0 % (0-2); EOSINOPHILS % (MANUAL) 2 % (0-7); LYMPHOCYTES % (MANUAL) 31 % (20-46); METAMYELOCYTES % 2 % (0-0); MONOCYTES % (MANUAL) 7 % (0-11); MYELOCYTES % 1 % (0-0)
--- NOTE | 2018-02-03 04:25 | NUR ---
DR VILLALOBOS Call placed to Dr Villalobos regarding low BP with NeoSynephrine max dose infusing, and Levophed max dose infusing. Waiting for return call.
--- NOTE | 2018-02-03 04:40 | NUR ---
DR VILLALOBOS 2nd call placed to Dr Villalobos regarding low BP with NeoSynephrine max dose infusing, and Levophed max dose infusing. Waiting for return call.
[2018-02-03] MEDS ORDERED: NACL 0.9% 1,000 ML IV SCH (04:49)
--- NOTE | 2018-02-03 04:50 | NUR ---
IAN Jimenez notified regarding low H/H. Orders received. 1.Vitamin K 10mg IM 2. Give continuous Bolus 2L NS concurrent with blood 3. If universal blood is available give.
--- NOTE | 2018-02-03 04:50 | NUR ---
DR IAN Jimenez also gave orders for 2 additional units of FFP.
[2018-02-03] MEDS ORDERED: PHYTONADIONE 10 MG/ML AMP ONE (05:03)
[2018-02-03] MEDS ORDERED: PHYTONADIONE 10 MG/ML AMP IM ONE (05:05)
[2018-02-03] MEDS: PANTOPRAZOLE SODIUM 40 MG in NS 50 ML IV SCH ×3 (05:18→10:08)
--- NOTE | 2018-02-03 05:50 | NUR ---
CODE BLUE Pt has change of condition with no pulse. Code blue initiated. See code blue sheet for details.
[2018-02-03] MEDS ORDERED: PANTOPRAZOLE SODIUM 40 MG TAB PO SCH (06:00)
[2018-02-03] MEDS ORDERED: VANCOMYCIN HCL 1.25 GM/NS 250 ML IV SCH ×2 (06:30→10:00)
[2018-02-03 06:39] LABS: BASOPHILS # (AUTO) 0.2 K/uL (0.0-0.2); BASOPHILS % (AUTO) 1.7 % (0.0-2.0); EOSINOPHILS # (AUTO) 0.1 K/uL (0.0-0.4); LYMPHOCYTES # (AUTO) 2.1 K/uL (1.0-5.5); LYMPHOCYTES % (AUTO) 14.6 % (20.5-51.5); MEAN CORPUSCULAR HEMOGLOBIN 34 pg (27-31); MEAN CORPUSCULAR HGB CONC 35 % (32-36); MEAN CORPUSCULAR VOLUME 98 fL (79.0-98.0); MONOCYTES # (AUTO) 0.3 K/uL (0.0-1.0); MONOCYTES % (AUTO) 1.8 % (1.7-9.3); NEUTROPHILS # (AUTO) 11.4 K/uL (1.8-7.7); PLATELET COUNT (AUTO) 71 K/uL (130-430); RED CELL DISTRIBUTION WIDTH 15.5 % (9.0-15.0); WHITE BLOOD COUNT (AUTO) 14.1 K/uL (4.8-10.8)
[2018-02-03 06:42] LABS: CREATININE 2.64 mg/dL (0.55-1.30); TOTAL BILIRUBIN 0.9 mg/dL (0.0-1.0)
--- NOTE | 2018-02-03 06:50 | NUR ---
CLOSING NOTES Pt in bed, not awake and alert with weak pulse, sinus rhythm on the monitor. Blood transfusion on going. Cleaned and repositioned Pt. Will give report to oncoming RN.
[2018-02-03] MEDS ORDERED: MEPERIDINE HCL/PF 100 MG/ML AMP ONE (06:57)
[2018-02-03] MEDS ORDERED: SIMETHICONE 40 MG/0.6 ML ML ONE (06:57)
[2018-02-03] MEDS ORDERED: MIDAZOLAM HCL 5 MG/5 ML VIAL ONE (06:57)
[2018-02-03] MEDS ORDERED: NOREPINEPHRINE BITARTRATE 4 MG in D5W 246 ML IV PRN (07:15)
[2018-02-03 07:35] LABS: RED BLOOD CELL COUNT(AUTO) 1.15 MIL/uL (4.2-6.2)
[2018-02-03 07:36] LABS: HEMATOCRIT 11.3 % (36-54); HEMOGLOBIN 3.9 g/dL (14.0-18.0)
--- NOTE | 2018-02-03 07:45 | NUR ---
RN OPENING ASSESSMENT PT PRESENTED WITH GI BLEED: BLEEDING FROM NOSE, MOUTH AND ANUS NOTED, BLOOD PRODUCT CURRENTLY INFUSING. PM RN REPORTED A CODE BLUE WAS CALLED AT 0115 AND 0555 THIS MORNING. PT UNRESPONSIVE, PUPILS FIXED AND NON-REACTIVE TO LIGHT. ET TO VENT, BREATH SOUNDS CLEAR BILATERALLY. FLORES CATH IN PLACE AND DRAINING TO GRAVITY WNL. RIGHT FEMORL CENTRAL LINE IN PLACE, DRESSING INTACT. A TOTAL OF 4 UNITS PRBC AND 4 UNITS FFP ORDERED.
--- NOTE | 2018-02-03 07:49 | NUR ---
Consult MD: Surgery Dr. Barcenas called for central line placement spoke to chris dialed [phone] Fitzpatrick
[2018-02-03 07:59] LABS: CALCIUM 6.2 mg/dL (8.4-11.0)
--- NOTE | 2018-02-03 08:17 | NUR ---
Arturo ROJAS: Dr. Saenz waiting for call back
--- NOTE | 2018-02-03 08:19 | NUR ---
Arturo ROJAS: Dr. Villalobos waiting for call back spoke to raul dialed [phone]
--- NOTE | 2018-02-03 08:20 | NUR ---
IV started to left upper arm with good blood return. Flushed with saline lock.
[2018-02-03] MEDS ORDERED: CALCIUM CHLORIDE 1 GM/10ML VIAL (13.6 mEq Ca++/VIAL) ONE (08:28)
[2018-02-03] MEDS ORDERED: MEPERIDINE HCL/PF 50 MG/ML AMP ONE (08:29)
[2018-02-03] MEDS ORDERED: INSULIN REGULAR, HUMAN 100 UNITS/ML, 10 ML VIAL IVP ONE (08:30)
[2018-02-03] MEDS ORDERED: DEXTROSE 50% JECT 50 ML DISP.SYRIN IVP ONE (08:30)
[2018-02-03] MEDS ORDERED: DEXTROSE 50% JECT 50 ML DISP.SYRIN ONE (08:31)
--- NOTE | 2018-02-03 08:36 | NUR ---
Consult MD: Neuro Karen Wolf called spoke to raul dialed [phone] Saenz
[2018-02-03] MEDS ORDERED: SODIUM BICARBONATE 8.4% JECT 150 MEQ in D5W 1,000 ML IV SCH (09:00)
[2018-02-03] MEDS ORDERED: SODIUM BICARBONATE 8.4% JECT 50 MEQ/50 ML SYRINGE IVP ONE (09:00)
[2018-02-03] MEDS ORDERED: CALCIUM CHLORIDE 1 GM in NS 100 ML IV ONE (09:00)
--- NOTE | 2018-02-03 09:00 | NUR ---
0900 LEVAQUIN AND SODIUM BICARB IN D5W WOULD NOT SCAN. PHARMACY INFORMED AND SAID IT WAS A KNOWN PROBLEM WITH [employer].
--- NOTE | 2018-02-03 09:05 | NUR ---
DR. CLARKE AT BEDSIDE, RIGHT FE,ORA; ARCADIO INSERTED.
[2018-02-03] MEDS ORDERED: HEPARIN SODIUM,PORCINE 5000 UNITS/ML VIAL ONE (09:11)
[2018-02-03] MEDS: SODIUM BICARBONATE 8.4% JECT 100 MEQ in D5W 1,000 ML IV SCH ×2 (09:31→11:55)
--- NOTE | 2018-02-03 09:53 | NUR ---
DR. LAWLER AT BEDSIDE
--- NOTE | 2018-02-03 09:57 | NUR ---
DR. LONGO AT BEDSIDE NEW ORDERS RECEIVED
--- NOTE | 2018-02-03 10:00 | NUR ---
DR. CAMACHO AT BEDSIDE
[2018-02-03 10:14] LABS: NEUTROPHILS % (AUTO) 80.9 % (40.0-70.0)
[2018-02-03 11:06] LABS: CALCIUM 7.2 mg/dL (8.4-11.0); CREATININE 2.64 mg/dL (0.55-1.30)
[2018-02-03 11:07] LABS: TOTAL BILIRUBIN 0.5 mg/dL (0.0-1.0)
[2018-02-03 11:25] LABS: BASOPHILS # (AUTO) 0.1 K/uL (0.0-0.2); BASOPHILS % (AUTO) 0.9 % (0.0-2.0); EOSINOPHILS % (AUTO) 0.4 % (0.0-4.0); LYMPHOCYTES # (AUTO) 1.2 K/uL (1.0-5.5); LYMPHOCYTES % (AUTO) 16.3 % (20.5-51.5); MEAN CORPUSCULAR HEMOGLOBIN 30 pg (27-31); MEAN CORPUSCULAR HGB CONC 33 % (32-36); MEAN CORPUSCULAR VOLUME 91 fL (79.0-98.0); MONOCYTES # (AUTO) 0.2 K/uL (0.0-1.0); MONOCYTES % (AUTO) 2.4 % (1.7-9.3); NEUTROPHILS # (AUTO) 6.1 K/uL (1.8-7.7); RED CELL DISTRIBUTION WIDTH 15.5 % (9.0-15.0); WHITE BLOOD COUNT (AUTO) 7.6 K/uL (4.8-10.8)
[2018-02-03 11:26] LABS: RED BLOOD CELL COUNT(AUTO) 1.55 MIL/uL (4.2-6.2)
[2018-02-03 11:27] LABS: HEMATOCRIT 14.1 % (36-54); HEMOGLOBIN 4.6 g/dL (14.0-18.0); PLATELET COUNT (AUTO) 20 K/uL (130-430)
--- NOTE | 2018-02-03 11:30 | NUR ---
[facility], [facility] NOTIFIED REGARDING PT AND CONDITION. CASE # [id number].
[2018-02-03 11:34] LABS: ALBUMIN 0.7 g/dL (3.4-4.8)
--- NOTE | 2018-02-03 11:40 | NUR ---
DR. LONGO, DR. LONGO NOTIFIED OR HGB 4.6, HCT 11.2, PT CT 20. NEW ORDERS RECEIVED.
--- NOTE | 2018-02-03 12:12 | NUR ---
CODE BLUE PT UNRESPONSIVE, NO PULSE DETECTED THROUGH DOPPLER, SECOND NURSE CONFIRMED PEA, CODE BLUE INITIATED, CRASH CART RETRIEVED BY CHARGE NURSE WHILE CPR WAS STARTED. SEE CODE BLUE SHEET FOR DETAILS.
[2018-02-03 12:13] LABS: POTASSIUM 7.3 mmol/L (3.5-5.1)
[2018-02-03] MEDS ORDERED: EPINEPHrine JECT 1 MG/10 ML SYR IVP ONE (12:19)
--- NOTE | 2018-02-03 12:20 | NUR ---
TIME OF : 1220 [address] BY ED [address]. CUEVA AT 1220 AFTER ACLS UNSUCCESSFUL IN ACHIEVE ROSC. FAMILY PRESENT AND NOTIFIED.
--- NOTE | 2018-02-03 12:33 | NUR ---
1215 RECEIVED CODE BLUE IN ICU8. GERMAN LAYNE WAS PERFORMING CHEST COMPRESSIONS. [facility] JOAQUINA TOOK PT OFF VENT AND STARTED MANUAL BAGGING. PT BLEEDING FROM NOSE, MOUTH, BICARB 2.7, Hb 6.4. AT 1221 DR. BRAMBILA CALLED TIME OF . Addendum: 02/03/18 at 1242 by Joaquina Iyer RT Amended: Links added.
--- NOTE | 2018-02-03 12:39 | NUR ---
's Informed patient Dr. Saenz spoke to . Dr. Dietrich spoke to raul Dr. Fitzpatrick spoke to raul Dr. Harris spoke to raul Dr. Stephen spoke to raul Dr. Barcenas spoke to raul Karen Wolf spoke to raul
[2018-02-03 14:07] LABS: PROTHROMBIN TIME 43.2 SECS (9.5-12.5)
[2018-02-03 14:08] LABS: INR 4.2 (0.80-1.20)
--- NOTE | 2018-02-03 14:13 | NUR ---
Social Service Note: MECHANICAL TECHNICAL SERVICE SPECIALIST in ICU during code; emotional support provided to pt's family. MECHANICAL TECHNICAL SERVICE SPECIALIST has contacted the [employer] ([phone]); MECHANICAL TECHNICAL SERVICE SPECIALIST spoke with Tootie who assigned . Pt's brother is in the [place] and deployed at this time. MECHANICAL TECHNICAL SERVICE SPECIALIST has spoken to pt's father, Nilesh; he will speak with pt's mother about mortuary arrangements. [facility] has provided pt's father with the case number for the [employer]. MECHANICAL TECHNICAL SERVICE SPECIALIST will remain available for support Addendum: 02/03/18 at 1437 by Dena Ken LCSW MECHANICAL TECHNICAL SERVICE SPECIALIST met with pt's family at bedside. Pt's family has indicated that they would like to use: [facility] ([phone]; [address] [place] [address]). Emotional Support provided by [facility].
--- NOTE | 2018-02-03 16:00 | NUR ---
POST-MORTEM CARE COMPLETED ALL INVASIVE LINES AND LINES REMAIN IN PLACE AND INTACT PER FORESTRY PROFESSOR REQUEST
--- NOTE | 2018-02-03 16:37 | NUR ---
[facility] CONTACTED THEY WILL RETRIEVE PATIENT RYLEE, NO ETA PROVIDED.
--- NOTE | 2018-02-03 19:25 | NUR ---
Mortuary associate financial representative transported patient to [facility]. Family notified.
== END 2018-02-03 12:20 | disposition expired | DRG 720 ==
LOC: SED 12:15 → STU 14:41 → SIC 19:41
PROVIDERS: ADMIT General Practice; ATTEND General Practice
PROC: 30233N1 Transfusion of Nonautologous Red Blood Cells into Peripheral Vein, Percutaneous Approach (ICD-10-PCS; 2018-02-02)
PROC: 5A1935Z Respiratory Ventilation, Less than 24 Consecutive Hours (ICD-10-PCS; 2018-02-03)
PROC: 06HY33Z Insertion of Infusion Device into Lower Vein, Percutaneous Approach (ICD-10-PCS; 2018-02-03)
PROC: B54CZZA Ultrasonography of Left Lower Extremity Veins, Guidance (ICD-10-PCS; 2018-02-03)
PROC: 30233L1 Transfusion of Nonautologous Fresh Plasma into Peripheral Vein, Percutaneous Approach (ICD-10-PCS; 2018-02-03)
PROC: 30233K1 Transfusion of Nonautologous Frozen Plasma into Peripheral Vein, Percutaneous Approach (ICD-10-PCS; 2018-02-03)
PROC: 0BH17EZ Insertion of Endotracheal Airway into Trachea, Via Natural or Artificial Opening (ICD-10-PCS; 2018-02-03)
PROC: 06L38CZ Occlusion of Esophageal Vein with Extraluminal Device, Via Natural or Artificial Opening Endoscopic (ICD-10-PCS; principal; 2018-02-03 07:30)
DX: A41.9 Sepsis, unspecified organism (principal); D65 Disseminated intravascular coagulation [defibrination syndrome]; J96.00 Acute respiratory failure, unspecified whether with hypoxia or hypercapnia; N17.0 Acute kidney failure with tubular necrosis; E43 Unspecified severe protein-calorie malnutrition; R40.20 Unspecified coma; K22.6 Gastro-esophageal laceration-hemorrhage syndrome; E83.51 Hypocalcemia; D68.9 Coagulation defect, unspecified; I46.9 Cardiac arrest, cause unspecified; R65.21 Severe sepsis with septic shock; R57.1 Hypovolemic shock; E87.0 Hyperosmolality and hypernatremia; E87.5 Hyperkalemia; F32.9 Major depressive disorder, single episode, unspecified; I10 Essential (primary) hypertension; R74.0 Nonspecific elevation of levels of transaminase and lactic acid dehydrogenase [LDH]; D50.0 Iron deficiency anemia secondary to blood loss (chronic); F10.220 Alcohol dependence with intoxication, uncomplicated; K70.30 Alcoholic cirrhosis of liver without ascites; I85.01 Esophageal varices with bleeding; E87.2 Acidosis; Z88.0 Allergy status to penicillin; Z79.899 Other long term (current) drug therapy; Z68.30 Body mass index [BMI] 30.0-30.9, adult
CPT/HCPCS: 36415; 36600; 43255; 71045; 80048; 80053; 82803-TC; 82962; 83036; 83051; 83605; 83690-TC; 83735-TC; 85007; 85014-TC; 85025; 85027; 85379; 85384-TC; 85610-TC; 85730-TC; 86886; 86900; 86901; 86920; 87040-TC; 93005; 94002; 96361; 96374; 96375; 99285; C1751; C9113; G0482; J0171; J1644; J1815; J1885; J1956; J2060; J2175; J2250; J2354; J2370; J2405; J3370; J3430; J7030; J7040; J7050; J7060; P9021; P9059